=== PATIENT | female | born 1975 | race Caucasian/White ===

== ENCOUNTER 2017-09-16 22:08 | Emergency (ER) | payer BC ==
[2017-09-16 23:10] LABS: Hematocrit 42 % (35-47); Hemoglobin 14.2 g/dl (12.0-16.0); Mean Corpuscular HGB Conc 34 g/dl (31-36); Mean Corpuscular Hemoglobin 35 pg (27-31); Mean Corpuscular Volume 101 fL (80-97); Mean Platelet Volume 8.8 um3 (7.4-10.4); Platelet Count 203 10^3/ul (150-450); Red Blood Count 4.13 10^6/ul (4.00-5.40); Red Cell Distribution Width 13 % (10.5-15); White Blood Count 4.8 10^3/ul (3.5-10.8)
[2017-09-16 23:17] LABS: ABS Basophils 0 10^3/ul (0-0.2); ABS Eosinophils 0 10^3/ul (0-0.6); ABS Lymphocytes 1.6 10^3/ul (1.0-4.8); ABS Monocytes 0.7 10^3/ul (0-0.8); ABS Neutrophils 2.5 10^3/ul (1.5-7.7); ABS Nucleated RBC 0 10^3/ul
--- NOTE | 2017-09-16 23:26 | ED ---
Skin Complaint - HPI Summary HPI Summary: Left eye irritation, left side facial swelling, left ear pain 4 days. Patient states she went into [facility] during algae freitas and is concerned this might be a reaction. Denies vision change, MENDOZA, eye, discharge, fever, nasal discharge, ear discharge, cough, sore throat, N/V/D, abdomen pain, change in pain, SOB, change in urinary BM. Medical History is none. - History of Current Complaint Chief Complaint: EDEyeProblem Time Seen by Provider: 09/16/17 22:46 Stated Complaint: SWOLLEN LT SIDE FACE Hx Obtained From: Patient Onset/Duration: Started Days Ago Skin Exposure Onset/Duration: Days Ago Timing: Constant Onset Severity: Mild Current Severity: Moderate Pain Intensity: 4 Pain Scale Used: 0-10 Numeric Skin Location: Face Aggravating Symptom(s): Nothing Alleviating Symptom(s): Nothing Associated Signs & Symptoms: Tenderness - Allergy/Home Medications Allergies/Adverse Reactions: Allergies Allergy/AdvReac Type Severity Reaction Status Date / Time No Known Allergies Allergy Verified 09/16/17 22:13 PMH/Surg Hx/FS Hx/Imm Hx Endocrine/Hematology History: Denies: Hx Anticoagulant Therapy Cardiovascular History: Denies: Hx Cardiac Arrest History: Denies: Hx Dialysis Neurological History: Denies: Hx CVA Infectious Disease History: No Infectious Disease History: Denies: History Other Infectious Disease, Traveled Outside the [place] in Last 30 Days - Social History Alcohol Use: None Substance Use Type: Reports: None Smoking Status (MU): Never Smoked Tobacco Review of Systems Constitutional: Negative Eyes: Negative ENT: Negative Cardiovascular: Negative Respiratory: Negative Gastrointestinal: Negative Genitourinary: Negative Musculoskeletal: Negative Skin: Other Neurological: Negative Psychological: Normal All Other Systems Reviewed And Are Negative: Yes Physical Exam - Summary Physical Exam Summary: Mild swelling and erythema to Periorbital tissues on left side of face. No conjunctival injection in bilateral eyes. EOMs intact. No extra warmth, purulent discharge, fluctuance, mass to periorbital tissues on left side. Full range of motion of jaw. TMs normal. Oropharynx normal. Triage Information Reviewed: Yes Vital Signs On Initial Exam: Initial Vitals Temp Pulse Resp BP Pulse Ox 97.7 F 112 15 127/89 96 09/16/17 22:13 09/16/17 22:13 09/16/17 22:13 09/16/17 22:13 09/16/17 22:13 Vital Signs Reviewed: Yes Appearance: Positive: Well-Appearing Skin: Positive: Warm Head/Face: Positive: Normal Head/Face Inspection Eyes: Positive: Normal ENT: Positive: Pharynx normal, TMs normal Neck: Positive: Supple Respiratory/Lung Sounds: Positive: Clear to Auscultation Cardiovascular: Positive: Normal Abdomen Description: Positive: Nontender Musculoskeletal: Positive: Normal Neurological: Positive: Normal Psychiatric: Positive: Normal AVPU Assessment: Alert - [place] Coma Scale Best Eye Response: 4 - Spontaneous Best Motor Response: 6 - Obeys Commands Best Verbal Response: 5 - Oriented Coma Scale Total: 15 Diagnostics - Vital Signs Vital Signs Temp Pulse Resp BP Pulse Ox 09/16/17 22:13 97.7 F 112 15 127/89 96 - Laboratory Lab Results: Lab Results 09/16/17 Range/Units 22:59 WBC 4.8 (3.5-10.8) 10^3/ul RBC 4.13 (4.00-5.40) 10^6/ul Hgb 14.2 (12.0-16.0) g/dl Hct 42 (35-47) % MCV 101 H (80-97) fL MCH 35 H (27-31) pg MCHC 34 (31-36) g/dl RDW 13 (10.5-15) % Plt Count 203 (150-450) 10^3/ul MPV 8.8 (7.4-10.4) um3 Neut % (Auto) Pending Lymph % (Auto) Pending [place] % (Auto) Pending Eos % (Auto) Pending Baso % (Auto) Pending Absolute Neuts (auto) 2.5 (1.5-7.7) 10^3/ul Absolute Lymphs (auto) 1.6 (1.0-4.8) 10^3/ul Absolute Monos (auto) 0.7 (0-0.8) 10^3/ul Absolute Eos (auto) 0 (0-0.6) 10^3/ul Absolute Basos (auto) 0 (0-0.2) 10^3/ul Absolute Nucleated RBC 0 10^3/ul Nucleated RBC % Pending Result Diagrams: 09/16/17 22:59 09/16/17 22:59 Lab Statement: Any lab studies that have been ordered have been reviewed, and results considered in the medical decision making process. Course/Dx - Course Course Of Treatment: Left eye irritation, left side facial swelling, left ear pain 4 days. Patient states she went to continue the leg during algebra and is concerned this might be a reaction. Denies vision change, MENDOZA, eye, discharge, fever, nasal discharge, ear discharge, cough, sore throat, N/V/D, abdomen pain, change in pain, SOB, change in urinary BM. Medical History is none. Mild swelling and erythema to Periorbital tissues on left side of face. No conjunctival injection or discharge in bilateral eyes. EOMs intact. No extra warmth, purulent discharge, fluctuance, mass to periorbital tissues on left side. Full range of motion of jaw. TMs normal. Oropharynx normal. Discussed patient with Dr. Greene who recommended topical steroids BID for contact dermatitis, with follow-up of oral antibiotics if symptoms do not improve in 3 days. RX for Keflex 500 mg twice a day, and Bactrim twice a day, both for 7 days. - Diagnoses Provider Diagnoses: Contact dermatitis Discharge - Sign-Out/Discharge Documenting (check all that apply): Patient Departure - Discharge Plan Condition: Stable Disposition: HOME Prescriptions: Cephalexin CAP* [Keflex CAP*] 500 mg PO BID 7 Days #14 cap Sulfamethox/Trimethoprim DS* [Bactrim DS 800/160 TAB*] 1 tab PO BID 7 Days #14 tab Patient Education Materials: Contact Dermatitis (ED) Referrals: No Primary Care Phys,NOPCP [Primary Care Provider] - Additional Instructions: Apply topical hydrocortisone twice a day until symptoms resolve. Take oral antibiotics if symptoms do not resolve in 3 days. Follow-up with primary care. Return to the ED for any new or worsening symptoms - Billing Disposition and Condition Condition: STABLE Disposition: Home
[2017-09-16] MEDS ORDERED: Hydrocortisone 1% CREAM* 30 GM TUBE TOPICAL SCH (23:30)
[2017-09-16 23:33] LABS: EGFR Non-African American 96.1 (>60)
[2017-09-17 00:21] VITALS: BP 0/0
[2017-09-17 02:47] LABS: Eosinophil % 0.6 % (0-6); Lymphocyte % 33.1 % (25-47); Nucleated Red Blood Cells % 0.1
== END 2017-09-17 00:13 | disposition home or self-care (01) ==
LOC: ED 22:08
DX: L25.8 Unspecified contact dermatitis due to other agents (principal); H92.02 Otalgia, left ear; H57.8 Other specified disorders of eye and adnexa
CPT/HCPCS: 36415; 80053; 83605; 85025; 86140; 99282; A9270-GY

== ENCOUNTER → 2018-01-14 00:40 | Emergency (ER) | payer BC ==
[~2018-01-14 00:40] MED LIST: Ketorolac INJ* 60 MG/2 ML VIAL IM ONE; oxyCODONE/Acetamin 5/325 MG* TAB PO ONE
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
[2018-01-14 02:50] VITALS: BP 125/80
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
== END | disposition home or self-care (01) ==
LOC: ED 00:40
DX: R07.89 Other chest pain (principal)
CPT/HCPCS: 93005; 96372; 99282; A9270-GY; J1885